=== PATIENT | female | born 1975 | race American Indian/Alaskan Native ===

== ENCOUNTER 2018-07-12 09:26 | Emergency (ER) | payer OTHER, SELFPAY ==
[2018-07-12 09:27] VITALS: BMI 44.6
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
[2018-07-12 10:53] VITALS: BP 129/86; PULSE 84; RESP 20; TEMP 98.2; O2SAT 96
== END 2018-07-12 10:53 | disposition home or self-care (01) ==
LOC: C.ER 09:26
DX: H11.33 Conjunctival hemorrhage, bilateral (principal); K08.89 Other specified disorders of teeth and supporting structures